=== PATIENT | female | born 1965 | race Caucasian/White ===

== ENCOUNTER 2017-09-28 21:13 | Inpatient (IN) | payer BC, OTHER ==
[~2017-09-28] VITALS: Ht 160 cm; Wt 75.3 kg
[~2017-09-28 21:13] MED LIST: INSU10SU2 SC
[2017-09-28 21:21] VITALS: BP 136/94
--- NOTE | 2017-09-28 21:27 | NUR ---
AMBULATED TO ER BED 1
--- NOTE | 2017-09-28 21:30 | NUR ---
PATIENT IS A 52 Y/O FEMALE WHO PRESENTS TO THE ED C/O ABD PAIN. PT STATES, "MY STOMACH HAS BEEN HURTING SO BADLY." PT REPORTS 10/10 ACHING PAIN ON THE ABD THAT DOES NOT RADIATE. PT DENIES CP, SOB, REPORTS NAUSEA DENIES VOMITING/DIARRHEA. PT AAOX4, RR EVEN/UNLABORED, PT REPOSITIONED FOR COMFORT, BED IN LOWEST POSITION. ER MD DR. SCOTT NOTIFIED. WILL CONTINUE TO MONITOR.
--- NOTE | 2017-09-28 21:35 | NUR ---
Patient being evaluated by physician at bedside.
[2017-09-28] MEDS ORDERED: MORPHINE SULFATE 4 MG/ML SYR IVP ONE (22:00)
[2017-09-28] MEDS ORDERED: NACL 0.9% 1,000 ML IV ONE ×2 (22:00→23:30)
[2017-09-28] MEDS ORDERED: ONDANSETRON 4 MG/2 ML VIAL IVP ONE (22:00)
--- NOTE | 2017-09-28 22:10 | NUR ---
PATIENT TAKEN TO CT VIA WHEELCHAIR.
--- NOTE | 2017-09-28 22:25 | NUR ---
PATIENT RETURN FROM CT.
[2017-09-28 22:29] LABS: APPEARANCE,URINE SL CLOUDY (CLEAR); BILIRUBIN,URINE NEGATIVE (NEGATIVE); BLOOD, URINE NEGATIVE (NEGATIVE); COLOR,URINE YELLOW (YELLOW); LEUKOCYTE ESTERASE ,URINE NEGATIVE (NEGATIVE); NITRITE, URINE NEGATIVE (NEGATIVE); UGLUCOSE NEGATIVE (NEGATIVE)
[2017-09-28 22:42] LABS: BASOPHILS # (AUTO) 0.5 K/uL (0.00-0.22); BASOPHILS % (AUTO) 2.9 % (0.0-2.0); EOSINOPHILS # (AUTO) 0.2 K/uL (0-0.4); HEMATOCRIT 43.2 % (36-48); HEMOGLOBIN 14.1 g/dL (12.0-16.0); LYMPHOCYTES # (AUTO) 2.8 K/uL (2.5-16.5); LYMPHOCYTES % (AUTO) 16.8 % (20.5-51.1); MEAN CORPUSCULAR HEMOGLOBIN 30 pg (27-31); MEAN CORPUSCULAR HGB CONC 33 g/dL (33-37); MEAN CORPUSCULAR VOLUME 92 fL (80-94); MONOCYTES # (AUTO) 1.2 K/uL (0.8-1.0); NEUTROPHILS # (AUTO) 11.9 K/uL (1.8-7.7); NEUTROPHILS % (AUTO) 72.3 % (42.2-75.2); PLATELET COUNT (AUTO) 407 K/uL (140-450); RED BLOOD CELL COUNT(AUTO) 4.69 MIL/uL (4.20-5.40); RED CELL DISTRIBUTION WIDTH 12.9 % (11.6-13.7); WHITE BLOOD COUNT (AUTO) 16.6 K/uL (4.8-10.8)
[2017-09-28 22:44] LABS: ANION GAP 14.4 (8-16); CARBON DIOXIDE 27.9 mmol/L (21-32); CREATININE 0.9 mg/dL (0.6-1.3); POTASSIUM 4.3 mmol/L (3.5-5.1); TOTAL BILIRUBIN 0.4 mg/dL (0.0-1.0)
[2017-09-28 22:44] LABS: RBC,URINE 0-5 (RARE) /HPF (0-5); WBC,URINE 0-5 (RARE) /HPF (0-5)
--- NOTE | 2017-09-28 23:45 | NUR ---
# 14 FR NG tube placed to RIGHT nare. Placement checked by auscultation of instilled air into stomach and aspiration of gastric contents. Tubing taped in place to prevent dislodging. Patient tolerated WELL.
[2017-09-29] VITALS (9 sets, daily range): BP systolic 137–166; BP diastolic 67–86
[2017-09-29] MEDS ORDERED: MORPHINE SULFATE 4 MG/ML SYR IVP ONE (00:20)
[2017-09-29] MEDS ORDERED: ONDANSETRON 4 MG/2 ML VIAL IVP ONE (00:20)
[2017-09-29] MEDS ORDERED: NACL 0.9% 1,000 ML IV SCH ×3 (00:51→17:51)
[2017-09-29] MEDS ORDERED: MORPHINE SULFATE 2 MG/ML SYR IVP PRN ×4 (00:55→20:25)
[2017-09-29] MEDS ORDERED: ONDANSETRON 4 MG/2 ML VIAL IVP PRN ×2 (01:00→17:55)
[2017-09-29] MEDS ORDERED: HYDROcodone/APAP 7.5/325 MG 1 TAB PO PRN (01:00)
[2017-09-29] MEDS ORDERED: ACETAMINOPHEN 325 MG TAB PO PRN ×2 (01:00→20:25)
[2017-09-29] MEDS ORDERED: HUM SUBQ (01:13)
--- NOTE | 2017-09-29 01:25 | NUR ---
Patient will be admitted to care of STORMY. Admited to M/S. Will go to room 106B. Belongings list completed. Report to WAYNE CROOK.
--- NOTE | 2017-09-29 01:30 | NUR ---
PT ARRIVED ON THE UNIT VIA GURNEY FROM ER. PT IN STABLE CONDITION. PT IS ON RA. SKIN IS WARM AND DRY TO TOUCH, COLOR WNL, PT HAS R AC 20G, PATENT AND INTACT, NG TUBE TO R NARE ON INTERMITTENT SUCTION, PATENT AND INTACT. RESPIRATIONS ARE EVEN AND UNLABORED, SKIN IS INTACT. INITIAL ASSESSMENT COMPLETE, PLAN OF CARE DISCUSSED WITH PT AT BEDSIDE, VERBALIZED UNDERSTANDING. ALL SAFETY PRECAUTIONS MET, CALL LIGHT WITHIN REACH WILL CONTINUE TO MONITOR
--- NOTE | 2017-09-29 01:40 | NUR ---
PAGED DR. TAPIA FOR ORDERS
--- NOTE | 2017-09-29 01:50 | NUR ---
DR. TAPIA PAGED BACK WILL CARRY OUT NEW ORDERS
[2017-09-29] MEDS ORDERED: DEXTROSE 50% 50 ML SYR IVP PRN (02:00)
[2017-09-29] MEDS: NACL 0.9% 1,000 ML IV SCH ×3 (02:00→21:06)
[2017-09-29] MEDS ORDERED: MORPHINE SULFATE 2 MG/ML SYR ONE (02:21)
--- NOTE | 2017-09-29 03:30 | NUR ---
PAGED DR. TAPIA FOR ORDERS FOR PAIN MEDICATION
--- NOTE | 2017-09-29 03:35 | NUR ---
DR. TAPIA PAGED BACK, WILL CARRY OUT NEW ORDERS
[2017-09-29] MEDS: ONDANSETRON 4 MG/2 ML VIAL IVP PRN ×2 (03:57→14:31)
[2017-09-29] MEDS: INSULIN LISPRO SLIDING SCALE 100 UNITS/ML VIAL SUBQ PRN ×2 (06:14→12:01)
[2017-09-29] MEDS: BLOOD GLUCOSE MONITORING 1 DEV DEV FS SCH ×5 (06:38→21:59)
[2017-09-29 06:44] LABS: BASOPHILS # (AUTO) 0.3 K/uL (0.00-0.22); BASOPHILS % (AUTO) 1.9 % (0.0-2.0); EOSINOPHILS # (AUTO) 0.1 K/uL (0-0.4); EOSINOPHILS % (AUTO) 0.8 % (0.0-4.0); HEMATOCRIT 40.5 % (36-48); HEMOGLOBIN 13.3 g/dL (12.0-16.0); LYMPHOCYTES # (AUTO) 1.4 K/uL (2.5-16.5); LYMPHOCYTES % (AUTO) 9.3 % (20.5-51.1); MEAN CORPUSCULAR HEMOGLOBIN 30 pg (27-31); MEAN CORPUSCULAR HGB CONC 33 g/dL (33-37); MEAN CORPUSCULAR VOLUME 91 fL (80-94); MONOCYTES # (AUTO) 0.8 K/uL (0.8-1.0); MONOCYTES % (AUTO) 5.3 % (1.7-9.3); NEUTROPHILS # (AUTO) 12.1 K/uL (1.8-7.7); NEUTROPHILS % (AUTO) 82.7 % (42.2-75.2); PLATELET COUNT (AUTO) 398 K/uL (140-450); RED BLOOD CELL COUNT(AUTO) 4.44 MIL/uL (4.20-5.40); RED CELL DISTRIBUTION WIDTH 13.1 % (11.6-13.7); WHITE BLOOD COUNT (AUTO) 14.7 K/uL (4.8-10.8)
[2017-09-29 07:16] LABS: ALBUMIN 3.6 g/dL (3.4-5.0); ANION GAP 14.6 (8-16); CARBON DIOXIDE 24.8 mmol/L (21-32); CREATININE 0.8 mg/dL (0.6-1.3); MAGNESIUM 1.9 mg/dL (1.8-2.4); PHOSPHORUS 2.1 mg/dL (2.5-4.9); POTASSIUM 4.4 mmol/L (3.5-5.1); TOTAL BILIRUBIN 0.7 mg/dL (0.0-1.0)
--- NOTE | 2017-09-29 07:38 | NUR ---
GAVE REPORT AT THE BEDSIDE TO DAY NURSE FOR CONTINUITY OF CARE PT IN STABLE CONDITION.
--- NOTE | 2017-09-29 07:39 | NUR ---
RECEIVED REPORT FROM TECHNICAL SUPPORT MANAGER NURSE. PATIENT IN STABLE CONDITION. PATIENT SITTING IN BED. NO DISTRESS NOTED. ABD PAIN WITHIN TOLERABLE AT THIS TIME. AAOX4, CALM, COOPERATIVE, SKIN COLOR APPROPRIATE TO ETHNICITY, WARM TO TOUCH. ABDOMEN IS SOFT, DISTENDED. DENIES ANY NAUSEA/VOMIT AT THIS TIME. LUNGS CTA ON ALL LOBES. NO OTHER WOUNDS/LESIONS NOTED THROUGHOUT BODY. NGTUBE IN PLACE ON RIGHT NOSTRILE, ON INTERMITTENT SUCTION. DRAINING SEROSANGUINOUS FLUID. IV INTACT, PATENT, AND INFUSING IVF PER ORDERS. REVIEWED PLAN OF CARE WITH PATIENT. PATIENT VERBALIZED UNDERSTANDING. SAFETY MEASURES IN PLACE, CALL LIGHT WITHIN REACH. WILL CONTINUE TO MONITOR.
[2017-09-29] MEDS ORDERED: ENOXAPARIN 30 MG/0.3 ML SYR SUBQ SCH (09:00)
[2017-09-29] MEDS ORDERED: DOCUSATE SODIUM 100 MG GELCAP PO SCH (09:00)
[2017-09-29] MEDS: PANTOPRAZOLE 40 MG INJ VIAL IVP SCH (09:24)
--- NOTE | 2017-09-29 09:33 | NUR ---
PATIENT LYING ON HER LEFT SIDE IN BED. C/O ABDOMINAL PAIN 06/18, MORPHINE MEDICATION IS NOT DUE YET. WILL NOTIFY DR. TAPIA THAT MORPHINE IS NOT WORKING FOR THE PATIENT. RESPIRATIONS EVEN, UNLABORED, INCREASED DUE TO PAIN, ON ROOM AIR. DENIES ANY NAUSEA/VOMITING AT THIS TIME. MEDICATIONS DUE GIVEN. SAFETY MEASURES IN PLACE, CALL LIGHT WITHIN REACH. WILL CONTINUE TO MONITOR.
--- NOTE | 2017-09-29 10:30 | NUR ---
PAGED DR. MARC DUE TO PATIENT COMPLAINTS OF CONTINUED LEFT UPPER ABD PAIN DESPITE CURRENT PAIN MANAGEMENT OF MORPHINE. NEW ORDERS GIVEN VIA TORB TO CHANGE MORPHINE 2GM/ML VIA IVP TO Q3H. ALSO NOTIFIED DR. MARC THAT NO GI CONSULT ORDERS YET. DR. MARC TO SEE PATIENT LATER TODAY. WILL CONTINUE TO MONITOR PATIENT.
[2017-09-29] MEDS: MORPHINE SULFATE 2 MG/ML SYR IVP PRN ×2 (11:13→14:43)
--- NOTE | 2017-09-29 11:15 | NUR ---
ASSISTED PATIENT TO THE BATHROOM, BY TEMPORARILY DISCONNECTING NG TUBE SUCTION. ABLE TO AMBULATE WITH STEADY GAIT TO BATHROOM AND BACK TO BED. PLACED PATIENT BACK ON NGTUBE INTERMITTENT SUCTION. SAFETY MEASURES IN PLACE, CALL LIGHT WITHIN REACH. WILL CONTINUE TO MONITOR.
--- NOTE | 2017-09-29 11:43 | NUR ---
PATIENT LYING ON HER LEFT SIDE IN BED. AT BEDSIDE. ABDOMINAL PAIN WITHIN TOLERABLE AT THIS TIME. NGTUBE SUCTION ON INTERMITTENT. IV SITE INTACT, PATENT, AND INFUSING IVF PER ORDERS. SAFETY MEASURES IN PLACE, CALL LIGHT WITHIN REACH. WILL CONTINUE TO MONITOR.
[2017-09-29] MEDS ORDERED: DEXT 5% /NACL 0.9% 1,000 ML IV SCH (13:10)
--- NOTE | 2017-09-29 13:15 | NUR ---
DR. MARC AT BEDSIDE. REVIEWING PLAN OF CARE WITH PATIENT. WILL CONTINUE TO MONITOR.
--- NOTE | 2017-09-29 14:17 | NUR ---
FAXED INITIAL REVEIW TO [facility] [phone] PHONE DURGA [phone]
--- NOTE | 2017-09-29 14:30 | NUR ---
DR. WELLER AT BEDSIDE FOR CONSULT. PATIENT HAD VOMITING EPISODE X1 JUST NOW. ZOFRAN GIVEN PER ORDERS. PATIENT COMPLAINTS OF 8/10 ABD PAIN. MORPHINE GIVEN PER MD ORDERS. SAFETY MEASURES IN PLACE. CALL LIGHT WITHIN REACH. WILL CONTINUE TO MONITOR.
[2017-09-29] MEDS: PIPER/TAZO 3.375GM/D5W PREMIX 50 ML IV SCH ×2 (15:00→21:14)
--- NOTE | 2017-09-29 16:30 | NUR ---
RECEIVED ORDERS FROM DR. SOLORZANO TO OBTAIN CONSENT FOR SURGERY TO PERFORM EXPLORATORY LAPARATOMY FOR BOWEL OBSTRUCTION, POSSIBLE BOWEL RESECTION, POSSIBLE OSTOMY SURGERY TODAY AT 1700. PROCEDURE EXPLAINED TO PATIENT AND AT BEDSIDE. PATIENT'S PREFERRED LANGUAGE IS SWEDISH, HOWEVER, PREFERS HER TO TRANSLATE FOR HER INSTEAD OF USING THE BLUE PHONE SODDER THAT WAS OFFERED TO JOANNE. PATIENT'S SPEAKS STATELESS AND SWEDISH. ANSWERED ALL OF PATIENT'S/'S QUESTIONS. CONSENT FOR SURGERY SIGNED. SAFETY MEASURES IN PLACE, CALL LIGHT WITHIN REACH. WILL CONTINUE TO MONITOR.
--- NOTE | 2017-09-29 16:50 | NUR ---
PATIENT TAKEN OF UNIT BY OR NURSES VIA GURNEY/BED. PATIENT IN STABLE CONDITION. WILL CONTINUE TO MONITOR WHEN PATIENT COMES BACK TO UNIT.
[2017-09-29] MEDS: BUPIVACAINE-MPF 0.25% 30 ML VIAL INJ ONE ×2 (16:52→20:19)
[2017-09-29] MEDS ORDERED: fentaNYL 0.05 MG/ML VIAL ONE (17:03)
[2017-09-29] MEDS ORDERED: MIDAZOLAM 2 MG/2 ML VIAL ONE (17:03)
[2017-09-29] MEDS ORDERED: MEPERIDINE 50 MG/ML SYR ONE (17:03)
[2017-09-29] MEDS ORDERED: SUCCINYLCHOLINE CHLORIDE 200 MG/10 ML VIAL IVP ONE (17:04)
[2017-09-29] MEDS ORDERED: BUPIVACAINE-MPF/EPI 0.25% 30 ML VIAL INJ ONE ×2 (17:13→17:16)
[2017-09-29] MEDS ORDERED: SUCCINYLCHOLINE CHLORIDE 200 MG/10 ML VIAL IV ONE (17:15)
[2017-09-29] MEDS ORDERED: PROPOFOL 200 MG/20 ML VIAL IV ONE (17:15)
[2017-09-29] MEDS ORDERED: ROCURONIUM 50 MG/5 ML VIAL IV ONE (17:15)
[2017-09-29] MEDS ORDERED: SEVOFLURANE 250 ML BTL INH ONE (17:15)
[2017-09-29 17:21] LABS: APPEARANCE,URINE CLEAR (CLEAR); BILIRUBIN,URINE NEGATIVE (NEGATIVE); BLOOD, URINE TRACE-L (NEGATIVE); COLOR,URINE ORANGE (YELLOW); LEUKOCYTE ESTERASE ,URINE NEGATIVE (NEGATIVE); NITRITE, URINE NEGATIVE (NEGATIVE); UGLUCOSE 2+ (NEGATIVE)
[2017-09-29 17:25] LABS: RBC,URINE 3-10 (FEW) /HPF (0-5); WBC,URINE 0-5 (RARE) /HPF (0-5)
[2017-09-29] MEDS ORDERED: HYDROmorphone 1 MG/ML AMP IVP PRN (17:55)
[2017-09-29] MEDS ORDERED: diphenhydrAMINE 50 MG/ML VIAL IVP PRN (17:55)
[2017-09-29] MEDS ORDERED: BLOOD GLUCOSE MONITORING 1 DEV DEV FS ONE (17:55)
[2017-09-29] MEDS ORDERED: MEPERIDINE 25 MG/ML SYR IVP PRN (17:55)
--- NOTE | 2017-09-29 19:20 | NUR ---
GAVE REPORT TO DOCTOR OF OSTEOPATHY NURSE. PATIENT IN STABLE CONDITION.
[2017-09-29] MEDS ORDERED: MORPHINE SULFATE 4 MG/ML SYR IV PRN (20:25)
[2017-09-29] MEDS ORDERED: HYDROcodone/APAP 5/325 MG 1 TAB TAB PO PRN (20:25)
--- NOTE | 2017-09-29 20:30 | NUR ---
TRANS IN FROM OR THIS 52 YEAR OLD FEMALE PATIENT AFTER A SUCCESSFUL ABDOMINAL SURGERY; ADMITTED IN ICU BED 8; HOOKED TO PERFUMER, SCOPE SHOWS ON SINUS RHYTHM HR 81/MIN NO ARRHYTHMIAS SEEN. PATIENT IS AROUSABLE, OPEN EYES TO CALLS. IVF IN PROGRESS NORMAL SALINE AT 150 ML/HR. ABDOMEN IS SOFT; DRESSING CLEAN AND INTACT AND WITH ABDOMINAL BINDER IN PLACED.
--- NOTE | 2017-09-29 22:25 | NUR ---
PATIENT'S BLADDER IS DISTENDED AND PATIENT UNABLE TO PASS URINE; PAGD DR. SOLORZANO TO REFER PATIENT; ANSWERED IMMEDIATELY WITH NEW ORDERS TO INSERT THOMPSON CATH.; NGT TO HIGH INTERMITTENT SUCTION; CARRIED OUT.
[2017-09-29] MEDS: HYDROmorphone 1 MG/ML AMP IVP PRN (22:37)
[2017-09-30] VITALS (9 sets, daily range): BP systolic 121–165; BP diastolic 55–106
--- NOTE | 2017-09-30 | NUR ---
ENCOURAGE PATIENT TO COUGH AND DEEP BREATH TOLERATED. AND ASSISTED HER TO TURN AND REPOSITION.
[2017-09-30] MEDS: HYDROmorphone 1 MG/ML AMP IVP PRN ×4 (02:11→11:48)
--- NOTE | 2017-09-30 04:00 | NUR ---
STILL WITH ON AND OFF POST OP PAIN; MONITORED CLOSELY.
[2017-09-30] MEDS: NACL 0.9% 1,000 ML IV SCH (05:04)
[2017-09-30] MEDS: PIPER/TAZO 3.375GM/D5W PREMIX 50 ML IV SCH ×3 (05:06→21:09)
--- NOTE | 2017-09-30 07:25 | NUR ---
ENDORSED TO AM SHIFT AMBREEN GAGE FOR CONTINUITY OF CARE
--- NOTE | 2017-09-30 07:30 | NUR ---
RECEIVED REPORT FROM INDUSTRIAL SALES ENGINEER RN, PT DROWSY BUT AROUSABLE, BEDSIDE MONITOR SHOWS SR, ON ROOM AIR, NO S/S OF RESPIRATORY DISTRESS NOTED, PT HAD EXPLORATORY LAPAROTOMY YESTERDAY, SITE INTACT AND PATENT, NGT SUCTION IN PLACE WITH BROWNISH SUCTION NOTED. IV TO RIGHT AC RUNNING NS AT 150 ML/HR, THOMPSON CATH IN PLACE, CLEAR YELLOW URINE NOTED, SCD IN PLACE, WILL CONTINUE TO MONITOR.
[2017-09-30] MEDS: BLOOD GLUCOSE MONITORING 1 DEV DEV FS SCH ×4 (08:00→21:06)
[2017-09-30] MEDS: PANTOPRAZOLE 40 MG INJ VIAL IVP SCH (08:14)
--- NOTE | 2017-09-30 08:17 | NUR ---
PATIENT HAS BEEN SCREENED AND CATEGORIZED HIGH NUTRITION RISK. PATIENT WILL BE SEEN WITHIN 1-2 DAYS OF ADMISSION. 09/30/17-10/01/[address]
[2017-09-30] MEDS: ENOXAPARIN 40 MG/0.4 ML SYR SUBQ SCH (08:26)
[2017-09-30 09:37] LABS: HEMATOCRIT 44.8 % (36-48); HEMOGLOBIN 14.8 g/dL (12.0-16.0); MEAN CORPUSCULAR HEMOGLOBIN 31 pg (27-31); MEAN CORPUSCULAR HGB CONC 33 g/dL (33-37); MEAN CORPUSCULAR VOLUME 93 fL (80-94); PLATELET COUNT (AUTO) 351 K/uL (140-450); RED BLOOD CELL COUNT(AUTO) 4.85 MIL/uL (4.20-5.40); RED CELL DISTRIBUTION WIDTH 13.6 % (11.6-13.7); WHITE BLOOD COUNT (AUTO) 17.5 K/uL (4.8-10.8)
[2017-09-30 09:48] LABS: ALBUMIN 2.9 g/dL (3.4-5.0); ANION GAP 16.5 (8-16); CARBON DIOXIDE 23.4 mmol/L (21-32); POTASSIUM 3.9 mmol/L (3.5-5.1); TOTAL BILIRUBIN 1.6 mg/dL (0.0-1.0)
--- NOTE | 2017-09-30 10:18 | NUR ---
CHANGED 0.9 NS FLUID FROM 150ML/ HR TO 100 MLS/HR PER DR. SOLORZANO
[2017-09-30 10:19] LABS: LYMPHOCYTES % (MANUAL) 8 % (20-46); MONOCYTES % (MANUAL) 4 % (5-12)
[2017-09-30] MEDS ORDERED: NACL 0.9% 1,000 ML IV SCH (10:20)
[2017-09-30] MEDS: INSULIN LISPRO SLIDING SCALE 100 UNITS/ML VIAL SUBQ PRN ×3 (12:10→21:19)
--- NOTE | 2017-09-30 13:06 | NUR ---
AT BEDSIDE TO ASSESS PT.
[2017-09-30] MEDS: DEXT 5% /NACL 0.9% 1,000 ML IV SCH ×2 (14:00→23:00)
--- NOTE | 2017-09-30 14:00 | NUR ---
CHANGED IV FLUID TO D51/2 NS AT 100 MLS/HR PER ORDER.
[2017-09-30] MEDS ORDERED: HYDROmorphone-HP 10 MG in NACL 0.9% 50 ML IV SCH (14:05)
[2017-09-30] MEDS ORDERED: HYDROmorphone 1 MG/ML AMP IVP SCH (14:15)
--- NOTE | 2017-09-30 14:22 | NUR ---
FAXED CONCURRENT REVIEW TO [facility] [phone] PHONE DURGA [phone]
--- NOTE | 2017-09-30 14:40 | NUR ---
APPLIED PT ON DILAUDID 10 MG FIELD UNDERWRITER PUMP IN NS 50 ML .LOADING DOES GIVEN.
--- NOTE | 2017-09-30 15:40 | NUR ---
PAGED DR. MARC, NOTIFIED HER PT STILL FEEL PAIN AFTER GIVING DILAUDID SERVICE LEARNING COORDINATOR PUMP, PER DR. MARC, CHANGE THE FREQUENCY Q30 MINUTES TO Q15 MINUTES,MAX 1.5 MG/HR, WILL CARRY OUT.
--- NOTE | 2017-09-30 15:45 | NUR ---
CALLED PHARMACIST MARY TO RESET LATHE MECHANIC PUMP, PER MARY, THE MAX IS 0.8MG/HR THE FREQUENCY IS Q15 MINUTES.
--- NOTE | 2017-09-30 16:45 | NUR ---
PT'S BLOOD SUGAR 307, HUMANLOG 8 UNITS GIVEN PER ORDER.
--- NOTE | 2017-09-30 17:00 | NUR ---
PT STATED PAIN RELIVED IF SHE DOES NOT MOVE. EXPLAINED TO PT SHE HAS WOUND ON HER ABD THAT'S WHY SHE FEELS PAIN, PT VERBALIZED UNDERSTANDING, PT'S AT BEDSIDE.
--- NOTE | 2017-09-30 19:10 | NUR ---
PT STATED PAIN RELIVED, VITALS STABLE AT THIS TIME. REPORT GIVEN TO SAVE ALL OPERATOR RN.
--- NOTE | 2017-09-30 19:15 | NUR ---
MANAGER RESEARCH AND DEVELOPMENT PUMP TOTAL INFUSION 14 ML.
--- NOTE | 2017-09-30 19:15 | NUR ---
REPORT TAKEN FROM DAY NURSE WITH S/P EXPLORATORY LAPAROTOMY DAY 1 WITH NG TUBE IN SITU AND LOW INTERMITTENT SUCTION DRAIN OUT FOR 30 MLS IN DAY TIME , NO BM YET. DRESSING INTACT, AFEBRILE , ON STOCK RECEIVER DILAUDID WITH PAIN GETTER BETTER PER PT. NPO AT HTIS TIME, ON THOMPSON CATH AT THIS TIME & GRAVITY TO FLOOR. PT'S AWAKE, ALERT, ORIENTED X 4 WIHT INDONESIAN SPEAKING ONLY. PT AND PT'S AT THE BEDSIDE WITH PT. NO C/O OTHERS.
--- NOTE | 2017-09-30 19:58 | NUR ---
DR SOLORZANO AT THE BEDSIDE WITH ORDER AND CARRIED OUT.
--- NOTE | 2017-09-30 20:15 | NUR ---
NG TUBE REMOVED AND PROVIDED ICE CHIP WITH EDUCATE TO PT WITH RESPOND WELL.
--- NOTE | 2017-09-30 20:20 | NUR ---
PT'S FAMILY AT THE BEDSIDE WITH UP TO DATE PT STATUS WITH RESPOND WELL.
--- NOTE | 2017-09-30 22:00 | NUR ---
PT'S ASLEEP. PAIN IS CONTROLLED BY FOREST MANAGEMENT TEACHER ON DILAUDID, PT'S TOLERATING WELL.
[2017-10-01] VITALS (8 sets, daily range): BP systolic 145–162; BP diastolic 71–100
--- NOTE | 2017-10-01 | NUR ---
PT'S ASLEEP. NO C/O OTHERS. PAIN COTROLLED BY BATTER MIXER DILAUDID INFUSION WITH PT'S TOLERATING WELL.
[2017-10-01] MEDS: DEXT 5% /NACL 0.9% 1,000 ML IV SCH ×2 (01:56→20:47)
--- NOTE | 2017-10-01 02:00 | NUR ---
PT'S ASLEEP, NO C/O PAIN AND RESTING WELL
--- NOTE | 2017-10-01 03:35 | NUR ---
PAGED O DR TAPIA, RE VIDEOTAPE RECORDING ENGINEER PUMP ISSUE WITH PASS WORD,PT NEED PAIN MEDICATION, ORDER DILAUDID VIDEOTAPE RECORDING ENGINEER DISCONTINUE, START IVP DILAUDID 1 MG Q 4 HOURS IVP FOR EVERY 4 HOURS FOR MODERATE PAIN, IVP DILAUDID 2 MG IVP Q4 HOURS FOR SEVERE PAIN, WILL BE CARRIED OUT.
--- NOTE | 2017-10-01 03:38 | NUR ---
C/O PAIN IN SURGERY SITE, REPOSITION DONE, PAIN MEDS GIVEN WITH DILAUDID 2 MG IVP , EFFECTED GRADUALLY FEEL BETTER. NO REACTION NOTED. PT GETING ASLEEP.
[2017-10-01] MEDS: HYDROmorphone PFS 2 MG/ML SYR IVP PRN ×5 (03:49→23:17)
[2017-10-01] MEDS: PIPER/TAZO 3.375GM/D5W PREMIX 50 ML IV SCH ×3 (05:17→20:46)
--- NOTE | 2017-10-01 05:45 | NUR ---
TOTAL CARE DONE BED BATH GIVEN . DUE MEDICATION GIVEN MD ORDER, PT'S TOLERATING WELL WITH SLOWLY MOVING .PASS GAS. KEEP HOB 30. LINEN CHANGED, THOMPSON CATH CLEAN AND GRAVITY TO FLOOR.
--- NOTE | 2017-10-01 06:00 | NUR ---
AM INTAKE AND OUTPUT RECORDED. NO BM YET
--- NOTE | 2017-10-01 07:13 | NUR ---
REPORT ENDORSE TO DAY NURSE WITH RESUME CARE.PT'S C/O PAIN AT THIS TIME WITH PRN DOSE WILL BE GIVEN BY DAY NURSE.
[2017-10-01] MEDS: HYDROmorphone 1 MG/ML AMP IVP PRN ×2 (07:24→11:28)
--- NOTE | 2017-10-01 07:34 | NUR ---
RECEIVED REPORT FROM NIGHT NURSE. PT IS AAOX4, YAKUT SPEAKING, FOLLOWS COMMANDS AND ABLE TO MAKE NEEDS KNOWN. C/O ABDOMINAL PAIN AND PRN DILAUDID GIVEN ORDERED. SINUS TACHY ON MONITOR. ON O2 VIA NC AT 2 LPM. BILATERAL LUNGS CLEAR UPON AUSCULTATION. PERIPHERAL IV G20 TO RIGHT AC PATENT AND INTACT, INFUSING ORDERED IV FLUID. ABDOMINAL BINDER IN PLACE, DRESSING TO ABD INCISION DRY AND INTACT. NO DRAINAGE OR BLEEDING NOTED. THOMPSON CATH IN PLACE DRAINING URINE TO GRAVITY DRAINAGE BAG. SCDS IN PLACE FOR VTE PROPHYLAXIS. BED IN LOWEST POSITION AND CALL LIGHT WITHIN REACH. NEEDS WELL ATTENDED. WILL CONTINUE TO MONITOR.
[2017-10-01] MEDS: INSULIN LISPRO SLIDING SCALE 100 UNITS/ML VIAL SUBQ PRN ×4 (07:49→20:45)
[2017-10-01] MEDS: BLOOD GLUCOSE MONITORING 1 DEV DEV FS SCH ×4 (07:50→20:43)
[2017-10-01] MEDS: PANTOPRAZOLE 40 MG INJ VIAL IVP SCH (09:02)
[2017-10-01] MEDS: ENOXAPARIN 40 MG/0.4 ML SYR SUBQ SCH (09:08)
--- NOTE | 2017-10-01 09:20 | NUR ---
MEDICATIONS ADMINISTERED. PT TOLERATED WELL.
[2017-10-01 09:28] LABS: BASOPHILS # (AUTO) 0.2 K/uL (0.00-0.22); BASOPHILS % (AUTO) 1.3 % (0.0-2.0); EOSINOPHILS % (AUTO) 0.1 % (0.0-4.0); HEMATOCRIT 38.9 % (36-48); HEMOGLOBIN 12.6 g/dL (12.0-16.0); LYMPHOCYTES # (AUTO) 1.8 K/uL (2.5-16.5); LYMPHOCYTES % (AUTO) 11.8 % (20.5-51.1); MEAN CORPUSCULAR HEMOGLOBIN 30 pg (27-31); MEAN CORPUSCULAR HGB CONC 32 g/dL (33-37); MEAN CORPUSCULAR VOLUME 92 fL (80-94); MONOCYTES # (AUTO) 1.4 K/uL (0.8-1.0); NEUTROPHILS % (AUTO) 77.8 % (42.2-75.2); PLATELET COUNT (AUTO) 322 K/uL (140-450); RED BLOOD CELL COUNT(AUTO) 4.22 MIL/uL (4.20-5.40); RED CELL DISTRIBUTION WIDTH 13.3 % (11.6-13.7); WHITE BLOOD COUNT (AUTO) 15.4 K/uL (4.8-10.8)
[2017-10-01 10:33] LABS: ALBUMIN 2.5 g/dL (3.4-5.0); ANION GAP 9.5 (8-16); CREATININE 0.8 mg/dL (0.6-1.3); POTASSIUM 3.5 mmol/L (3.5-5.1); TOTAL BILIRUBIN 1.3 mg/dL (0.0-1.0)
--- NOTE | 2017-10-01 11:30 | NUR ---
FAMILY AT BEDSIDE. NO ACUTE DISTRESS NOTED AT THIS TIME. SAFETY MEASURES ENSURED. WILL CONTINUE TO MONITOR.
--- NOTE | 2017-10-01 12:27 | NUR ---
10/01/17 RD INITIAL ASSESSMENT COMPLETED. PLEASE REFER TO NUTRITION PROGRESS NOTES UNDER CARE ACTIVITY FOR ESTIMATED NUTRITIONAL NEEDS. RD RECOMMENDATIONS: 1- RECOMMEND CONTINUE NPO DIET 2- WHEN MEDICALLY CLEARED FOR PO DIET, RECOMMEND CONSISTENT CARB 60G CCHO. 3- EDUCATE PT ON DIET. 4- F/U 3-5 DAYS; MODERATE RISK. WEN WHEAT MBA, RD
--- NOTE | 2017-10-01 12:29 | NUR ---
DR. MARC IN TO SEE AND EXAMINE PT. WILL FOLLOW UP ON ORDERS.
[2017-10-01] MEDS ORDERED: HYDROmorphone 1 MG/ML AMP IVP PRN (12:35)
--- NOTE | 2017-10-01 12:35 | NUR ---
DR. MARC IN AND SEEN PATIENT. STATED OK PATIENT TO TRANSFER TO TELE UNIT.
[2017-10-01] MEDS: ONDANSETRON 4 MG/2 ML VIAL IV PRN ×2 (14:23→19:35)
--- NOTE | 2017-10-01 14:44 | NUR ---
AT BEDSIDE. NO CHANGE OF CONDITION AT THIS TIME. NO DISTRESS NOTED. NEEDS WELL ATTENDED. WILL CONTINUE TO MONITOR.
--- NOTE | 2017-10-01 17:05 | NUR ---
REPORT GIVEN TO CAMI AT TELEMETRY FOR PT'S TRANSFER TO TELEMETRY UNIT.
--- NOTE | 2017-10-01 17:45 | NUR ---
PT TRANSFERRED TO TELEMETRY UNIT. PT TOLERATED THE TRANSFER. PT IN STABLE CONDITION.
--- NOTE | 2017-10-01 17:45 | NUR ---
RECEIVED FROM ICU VIA GURNEY, ACCOMPANIED BY PT. FAMILY MEMBERS. AWAKE, ALERT, AND ORIENTED X4. NO SIGNS AND SYMPTOMS OF ACUTE DISTRESS NOTED. KEEP COMFORTABLE ON BED. CALL LIGHT WITHIN REACH.
--- NOTE | 2017-10-01 19:14 | NUR ---
BEDSIDE REPORT GIVEN TO THANIA GRAMAJO. IVF INFUSING WELL. IN STABLE CONDITION.
--- NOTE | 2017-10-01 19:30 | NUR ---
RECEIVED REPORT FROM DAY SHIFT NURSE. PATIENT RESTING IN BED, STATED PAIN 10/10. THOMPSON IN PLACE, DRAINING URINE BY GRAVITY. INFORMED PATIENT I WOULD CHECK HIS VITAL SIGNS AND GIVE PAIN MEDICATION ORDERED. PATIENT VERBALIZED UNDERSTANDING. CALL LIGHT WITHIN REACH, SAFETY MEASURE ENSURED ,WILL CONTINUE TO MONITOR.
--- NOTE | 2017-10-01 20:50 | NUR ---
DUE MEDICATION GIVEN, PATIENT RESTING IN BED, NO S/S OF DISTRESS NOTED, RESPIRATION EVEN AND UNLABORED, CALL LIGHT WITHIN REACH, SAFETY MEASURE ENSURED, WILL CONTINUE TO MONITOR.
--- NOTE | 2017-10-01 23:23 | NUR ---
ABDOMINAL PAIN RADIATED TO THE BACK 08/18, BP 127/76 HR 108, DILAUDID GIVEN ORDERED. OFFERED ICE PACK. PATIENT IS SITTING ON THE CHAIR. CALL LIGHT WITHIN REACH, SAFETY MEASURE ENSURED, WILL CONTINUE TO MONITOR.
[2017-10-02] VITALS: BP 127/76
--- NOTE | 2017-10-02 01:34 | NUR ---
PATIENT STATED, " ITCHING, ITCHING. " UPON ASSESSMENT, PATIENT DENIES SOB, AND STATED," I THINK IT THE BED MAKES ME ITCHY." PAGED DR. TAPIA, RECEIVED ORDER OF BENADRYL 25MG IVP Q6H PRN FOR ITCHING. ORDER READ BACK, DR. TAPIA CONFIRMED.
[2017-10-02] MEDS ORDERED: diphenhydrAMINE 50 MG/ML VIAL IVP PRN (01:35)
--- NOTE | 2017-10-02 03:17 | NUR ---
BENADRYL 25MG ADMINISTERED, PATIENT TOLERATED WELL. NO S/S OF DISTRESS NOTED, RESPIRATION EVEN AND UNLABORED, CALL LIGHT WITHIN REACH, SAFETY MEASURE ENSURED, WILL CONTINUE TO MONITOR. Addendum: 10/02/17 at 318 by Glo Pinedo RN BENADRYL 25MG ADMINISTERED AT 228
[2017-10-02 03:45] VITALS: BP 157/79
[2017-10-02] MEDS: HYDROmorphone PFS 2 MG/ML SYR IVP PRN ×6 (03:46→23:03)
[2017-10-02] MEDS: PIPER/TAZO 3.375GM/D5W PREMIX 50 ML IV SCH ×3 (04:36→20:40)
--- NOTE | 2017-10-02 05:04 | NUR ---
PATIENT IS SLEEPING, RESPIRATION EVEN AND UNLABORED, CALL LIGHT WITHIN REACH, SAFETY MEASURE ENSURED, WILL CONTINUE TO MONITOR.
[2017-10-02] MEDS: BLOOD GLUCOSE MONITORING 1 DEV DEV FS SCH ×4 (06:41→21:08)
[2017-10-02] MEDS: INSULIN LISPRO SLIDING SCALE 100 UNITS/ML VIAL SUBQ PRN ×4 (06:43→21:14)
--- NOTE | 2017-10-02 07:02 | NUR ---
PAIN 10/10, BP 119/95, HR 96, DILAUDID GIVEN. PATIENT TOLERATED WELL. WILL CONTINUE TO MONITOR.
--- NOTE | 2017-10-02 07:10 | NUR ---
ENDORSED PLAN OF CARE TO DAY RN. PATIENT IS IN STABLE CONDITION. NO S/S OF DISTRESS NOTED.
[2017-10-02 08:11] VITALS: BP 141/69
--- NOTE | 2017-10-02 09:32 | NUR ---
DR SOLORZANO HERE, REQUESTED TO HAVE PATIENTS THOMPSON CATHETER REMOVED AND HAVE HER START TO AMBULATE. WILL FOLLOW THROUGH WITH ORDERS.
--- NOTE | 2017-10-02 09:43 | NUR ---
THOMPSON CATHETER DISCONTINUED, PATIENT TOLERATED WELL. WILL CONTINUE TO MONITOR.
[2017-10-02] MEDS: PANTOPRAZOLE 40 MG INJ VIAL IVP SCH (09:56)
[2017-10-02] MEDS: ENOXAPARIN 40 MG/0.4 ML SYR SUBQ SCH (10:02)
[2017-10-02 10:08] LABS: BASOPHILS # (AUTO) 0.3 K/uL (0.00-0.22); BASOPHILS % (AUTO) 2.3 % (0.0-2.0); EOSINOPHILS # (AUTO) 0.2 K/uL (0-0.4); EOSINOPHILS % (AUTO) 1.4 % (0.0-4.0); HEMATOCRIT 35.8 % (36-48); HEMOGLOBIN 11.8 g/dL (12.0-16.0); LYMPHOCYTES # (AUTO) 2.1 K/uL (2.5-16.5); MEAN CORPUSCULAR HEMOGLOBIN 30 pg (27-31); MEAN CORPUSCULAR HGB CONC 33 g/dL (33-37); MEAN CORPUSCULAR VOLUME 91 fL (80-94); MONOCYTES # (AUTO) 1.2 K/uL (0.8-1.0); MONOCYTES % (AUTO) 10.3 % (1.7-9.3); NEUTROPHILS # (AUTO) 7.9 K/uL (1.8-7.7); PLATELET COUNT (AUTO) 313 K/uL (140-450); RED BLOOD CELL COUNT(AUTO) 3.92 MIL/uL (4.20-5.40); RED CELL DISTRIBUTION WIDTH 13.1 % (11.6-13.7); WHITE BLOOD COUNT (AUTO) 11.7 K/uL (4.8-10.8)
[2017-10-02 10:47] LABS: ALBUMIN 2.4 g/dL (3.4-5.0); ANION GAP 10.2 (8-16); CARBON DIOXIDE 31.1 mmol/L (21-32); CREATININE 0.8 mg/dL (0.6-1.3); POTASSIUM 3.3 mmol/L (3.5-5.1); TOTAL BILIRUBIN 1.7 mg/dL (0.0-1.0)
--- NOTE | 2017-10-02 11:40 | NUR ---
PATIENTS BROTHER IS HERE AND IS HELPING HER AMBULATE DOWN THE HALLWAY. PATIENT TOLERATING WELL. WILL CONTINUE TO MONITOR.
[2017-10-02] MEDS ORDERED: KCL 20 MEQ/WATER INJ PREMIX 100 ML IV ONE (11:45)
[2017-10-02 12:00] VITALS: BP 153/64
[2017-10-02] MEDS: DEXT 5% /NACL 0.9% 1,000 ML IV SCH ×2 (12:26→15:00)
[2017-10-02] MEDS: LIDOCAINE IV SCH ×2 (14:30→14:53)
[2017-10-02] MEDS: POTASSIUM CHLORIDE IV SCH ×2 (14:30→14:53)
[2017-10-02] MEDS: NACL 0.9% IV SCH ×2 (14:30→14:53)
--- NOTE | 2017-10-02 14:53 | NUR ---
SENAIT MONTIEL 20MEQ RATE OF 130.5, CALLED PHARMACY TO VERIFY THAT THE RATE IS OKAY. THEY INFORMED ME THAT SINCE IT IS 20 MEQ IT HAS TO RUN FOR 2 HOURS. WILL CONTINUE TO MONITOR.
[2017-10-02 16:00] VITALS: BP 152/73
--- NOTE | 2017-10-02 19:23 | NUR ---
ENDORSED PATIENT TO AMBREEN BROOKS, FOR CONTINUITY OF CARE. PATIENT IN STABLE CONDITION.
[2017-10-02 20:00] VITALS: BP 145/77
--- NOTE | 2017-10-02 20:00 | NUR ---
RECEIVED ALERT,ORIENTED. AFEBRILE, NOT IN ACUTE DISTRESS. VERBALIZED IMPROVEMENT OF PAIN AT THE INCISION SITE. IV FLUID D5 NS INFUSING AT 50 ML/HR. MIDLINE INCISION SITE WITH DANIAL INTACT AND WITH MINIMAL SEROSANGUINOS DRAINAGE. SAO2=96% ON ROOM AIR. SINUS RHYTHM @ 90'S ON THE MONITOR. VS STABLE, WILL CONTINUE TO MONITOR. NEEDS ATTENDED.
--- NOTE | 2017-10-02 20:40 | NUR ---
DUE IV ANTIBIOTIC ADMINISTERED.
--- NOTE | 2017-10-02 21:08 | NUR ---
[id number]. WILL GIVE INSULIN PER SLIDING SCALE.
--- NOTE | 2017-10-02 21:14 | NUR ---
HUMALOG 2 UNITS SQ GIVEN PER SLIDING SCALE.
--- NOTE | 2017-10-02 22:50 | NUR ---
IV LINE LEAKING. GAUGE 18 IV LINE ESTABLISHED TO THE LEFT FOREARM. COMPLANED OF WORSENING PAIN. WILL GIVE PAIN MEDICATION.
--- NOTE | 2017-10-02 23:03 | NUR ---
DILAUDID 2 MG IVP GIVEN ORDERED.
--- NOTE | 2017-10-02 23:10 | NUR ---
AMBULANCE HERE TO SOCK FOLDER PT. REPORT GIVEN TO CHIVO REIS. Addendum: 10/02/17 at 2327 by Agency Lv CROOK RN WRONG ENTRY.
--- NOTE | 2017-10-02 23:23 | NUR ---
PT.LEFT UNIT VIA ISRA YAN. Addendum: 10/02/17 at 2327 by Agency Lv RN RN WRONG ENTRY.
[2017-10-03] VITALS: BP 133/63
--- NOTE | 2017-10-03 | NUR ---
AWAKE,NOT IN ANY KIND OF DISTRESS. VERBALIZED SIGNIFICANT IMPROVEMENT OF PAIN. MIDLINE ABDOMINAL INCISION CLEANSED WITH NS,COVERED WITH ABDOMINAL PAD AND BINDER REPLACED WITH NEW ONE DUE TO SOILING. VS STABLE, WILL CONTINUE TO MONITOR.
--- NOTE | 2017-10-03 02:30 | NUR ---
COMPLAINED OF WORSENING PAIN. PAIN MEDICATION NOT DUE AT THIS TIME.
[2017-10-03] MEDS: HYDROmorphone PFS 2 MG/ML SYR IVP PRN ×2 (03:03→12:44)
--- NOTE | 2017-10-03 03:03 | NUR ---
DILAUDID 2 MG IVP GIVEN ORDERED.
[2017-10-03 04:00] VITALS: BP 144/73
--- NOTE | 2017-10-03 04:00 | NUR ---
AWAKE,NOT IN ANY KIND OF DISTRESS. VERBALIZED SIGNIFICANT IMPROVEMENT OF PAIN. VS REMAIN STABLE. WILL CONTINUE TO MONITOR.
[2017-10-03] MEDS: PIPER/TAZO 3.375GM/D5W PREMIX 50 ML IV SCH ×3 (04:58→20:59)
[2017-10-03] MEDS: DEXT 5% /NACL 0.9% 1,000 ML IV SCH ×2 (05:52→20:59)
[2017-10-03] MEDS: BLOOD GLUCOSE MONITORING 1 DEV DEV FS SCH ×4 (06:31→21:07)
[2017-10-03] MEDS: INSULIN LISPRO SLIDING SCALE 100 UNITS/ML VIAL SUBQ PRN ×4 (06:39→21:09)
--- NOTE | 2017-10-03 06:39 | NUR ---
[id number]. 4 UNITS HUMALOG SQ GIVEN PER SLIDING SCALE.
--- NOTE | 2017-10-03 07:25 | NUR ---
ENDORSED CARE TO ZULEMA RN.
--- NOTE | 2017-10-03 07:30 | NUR ---
ENDORSEMENT RECEIVED FROM BELLHOP CAPTAIN NURSE. PATIENT IS STABLE AT THIS TIME. RESPIRATION EVEN, SKIN DRY AND WARM TO THE TOUCH. CALL LIGHT WITHIN REACH. WILL CONTINUE TO MONITOR
[2017-10-03 08:00] VITALS: BP 142/86
--- NOTE | 2017-10-03 08:00 | NUR ---
PATIENT AWAKE, ALERT, ORIENTED X 4. PUPILS EQUAL REACTIVE TO LIGHT. RESPIRATION EVEN, LUNGS SOUND CLEAR THROUGHOUT. CARDIAC WITH S1,S2 PRESENT. BOWEL SOUND ACTIVE 4 QUADRANTS. IV 18G LEFT FOREARM INFUSING D5NS @ 50ML/HR, PATENT AND INTACT. PEDAL PULSE EQUAL. PATIENT COMPLAINED OF ABDOMINAL PAIN /. WILL MEDICATE PER ORDER. CALL LIGHT WITHIN REACH. WILL CONTINUE TO MONITOR.
--- NOTE | 2017-10-03 08:15 | NUR ---
PT C/O FEELING SWEATY AND SHAKY, BLOOD SUGAR CHECKED, 215 AT THIS TIME, PT ALSO C/O ABD PAIN, ABD WITH VERTICAL SURGICAL WOUND WELL APPROXIMATED WITH DANIAL, NO DRAINAGE, ABD SOFT, NON DISTENDED, WILL GIVE PRN DILAUDID FOR PAIN.
[2017-10-03] MEDS: HYDROmorphone 1 MG/ML AMP IVP PRN ×4 (08:35→23:17)
[2017-10-03] MEDS: PANTOPRAZOLE 40 MG INJ VIAL IVP SCH (08:49)
[2017-10-03] MEDS: ENOXAPARIN 40 MG/0.4 ML SYR SUBQ SCH (08:50)
--- NOTE | 2017-10-03 10:20 | NUR ---
PATIENT IS AWAKE, ALERT. RESPIRATION EVEN, UNLABOR. FAMILY AT BEDSIDE. PATIENT COMPLAINED OF PAIN ON THE BACK AND ABDOMEN. WILL MEDICATE PER ORDER. CALL LIGHT WITHIN REACH. WILL CONTINUE TO MONITOR
--- NOTE | 2017-10-03 10:30 | NUR ---
NEW IV WAS PLACED ON RIGHT AC 20G. PATIENT TOLERATED WELL
[2017-10-03] MEDS ORDERED: HYDROmorphone 1 MG/ML AMP IVP SCH (11:00)
[2017-10-03] MEDS: ONDANSETRON 4 MG/2 ML VIAL IV PRN ×2 (11:13→23:54)
[2017-10-03 11:29] LABS: HEMATOCRIT 32.7 % (36-48); HEMOGLOBIN 10.6 g/dL (12.0-16.0); MEAN CORPUSCULAR HEMOGLOBIN 30 pg (27-31); MEAN CORPUSCULAR HGB CONC 33 g/dL (33-37); MEAN CORPUSCULAR VOLUME 92 fL (80-94); PLATELET COUNT (AUTO) 342 K/uL (140-450); RED BLOOD CELL COUNT(AUTO) 3.57 MIL/uL (4.20-5.40); RED CELL DISTRIBUTION WIDTH 13.4 % (11.6-13.7); WHITE BLOOD COUNT (AUTO) 10.6 K/uL (4.8-10.8)
[2017-10-03 11:47] LABS: ALBUMIN 2.2 g/dL (3.4-5.0); ANION GAP 11.3 (8-16); CARBON DIOXIDE 27.9 mmol/L (21-32); CREATININE 0.6 mg/dL (0.6-1.3); POTASSIUM 3.2 mmol/L (3.5-5.1); TOTAL BILIRUBIN 1.4 mg/dL (0.0-1.0)
[2017-10-03 12:00] VITALS: BP 150/81
[2017-10-03 12:01] LABS: BASOPHILS % (MANUAL) 1 % (0-2); EOSINOPHILS % (MANUAL) 4 % (0-4); LYMPHOCYTES % (MANUAL) 13 % (20-46); MONOCYTES % (MANUAL) 12 % (5-12)
--- NOTE | 2017-10-03 12:30 | NUR ---
PATIENT IS AWAKE, ALERT. RESPIRATION EVEN, UNLABOR. FAMILY AT BEDSIDE. PATIENT COMPLAINED OF PAIN ON THE ABDOMEN. WILL MEDICATE PER ORDER. CALL LIGHT WITHIN REACH. WILL CONTINUE TO MONITOR
--- NOTE | 2017-10-03 12:35 | NUR ---
PT UP AMBULATING DOWN THE HALLWAY WITH STEADY GAIT WITH , LOYD WELL, WILL CONTINUE TO MONITOR.
--- NOTE | 2017-10-03 13:24 | NUR ---
DR SOLORZANO AT BEDSIDE.
[2017-10-03] MEDS ORDERED: POTASSIUM CHLORIDE 20% 40 MEQ/15 ML UDC PO SCH (14:00)
[2017-10-03] MEDS ORDERED: MORPHINE SULFATE 4 MG/ML SYR IVP PRN (15:10)
[2017-10-03 16:00] VITALS: BP 154/86
--- NOTE | 2017-10-03 16:46 | NUR ---
PATIENT IS AWAKE, ALERT. RESPIRATION EVEN, UNLABOR. PATIENT COMPLAINED OF ABDOMINAL PAIN 10/10. WILL MEDICATE PER ORDER. CALL LIGHT WITHIN REACH. WILL CONTINUE TO MONITOR
--- NOTE | 2017-10-03 18:05 | NUR ---
PT GIVEN DILAUDID 1MG IV AT 1646, BUT ADMINISTRATION FAILED TO SAVE IN COMPUTER, ENTERED ADMINISTRATION IN eMAR AT THIS TIME, BUT ACTUAL DOSE GIVEN WAS AT 1646.
--- NOTE | 2017-10-03 18:48 | NUR ---
PATIENT IS AWAKE, ALERT. FAMILY AT BEDSIDE. RESPIRATION EVEN. PATIENT IS STABLE AT THIS TIME. CALL LIGHT WITHIN REACH. WILL CONTINUE TO MONITOR
--- NOTE | 2017-10-03 19:30 | NUR ---
RECEIVED PT IN STABLE CONDITION FROM AM NURSE. AWAKE ALERT AND ORIENTED X4. WELSH SPEAKING. SITTING ON THE CHAIR AT THIS TIME. NO C/O ANY PAIN AT THIS TIME. WITH FAMILY MEMBERS AT BEDSIDE. ON TELE MONITOR-SR. HAS IVF INFUSING WELL ON THE RT AC #20. HAS MID ABDOMINAL DRESSING DRY AND INTACT. ABDOMEN SLIGHTLY TENDER WITH C/O GAS. ENCOURAGED TO AMBULATE. PLAN OF CARE DISCUSSED AND VERBALIZED UNDERSTANDING. CALL LIGHT PLACED WITHIN EASY REACH. WILL CONTINUE TO MONITOR.
--- NOTE | 2017-10-03 19:32 | NUR ---
ENDORSEMENT GIVEN TO THE RECEIVER DISPATCHER NURSE. PATIENT IS STABLE AT THIS TIME
[2017-10-03 20:00] VITALS: BP 152/75
--- NOTE | 2017-10-03 22:10 | NUR ---
PAGED DR. MARC ,DR LEWIS READING TEACHER .CALLED BACK AND MADE AWARE OF THE PT C/O GAS. WITH ORDERS ALSO FOR MODERATE PAIN .
--- NOTE | 2017-10-03 22:30 | NUR ---
PT C/O THAT BLOOD SUGAR MIGHT BE LOW. SO AMBREEN MARES CHARGE CHECKED THE BS . RESULT 218. PT GIVEN 2 UNITS HUMALOG INSULIN COVERAGE EARLIER FOR BS 189. WILL CONTINUE TO MONITOR.
[2017-10-03] MEDS: SIMETHICONE 80 MG TAB.CHEW PO PRN (22:36)
[2017-10-03] MEDS: HYDROcodone/APAP 5/325 MG 1 TAB TAB PO PRN (23:13)
--- NOTE | 2017-10-03 23:54 | NUR ---
C/O NAUSEA. MEDICATED WITH ZOFRAN ORDERED. WILL CONTINUE TO MONITOR.
[2017-10-04] VITALS (10 sets, daily range): BP systolic 119–152; BP diastolic 57–82
--- NOTE | 2017-10-04 02:00 | NUR ---
MADE ROUNDS . PT IS SLEEPING AT THIS TIME. NO S/S OF ANY DISCOMFORT NOTED.
[2017-10-04] MEDS: HYDROmorphone 1 MG/ML AMP IVP PRN (03:43)
--- NOTE | 2017-10-04 04:13 | NUR ---
MADE ROUNDS. PT IS ASLEEP AFTER THE PAIN MED GIVEN @7817. NO S/S OF ANY DISCOMFORT NOTED.
[2017-10-04] MEDS: BLOOD GLUCOSE MONITORING 1 DEV DEV FS SCH ×3 (06:00→23:40)
[2017-10-04] MEDS: INSULIN LISPRO SLIDING SCALE 100 UNITS/ML VIAL SUBQ PRN ×4 (06:01→23:43)
--- NOTE | 2017-10-04 06:01 | NUR ---
BLOOD SUGAR THIS AM 238. HUMALOG 4 UNITS SUBQ GIVEN COVERAGE.
--- NOTE | 2017-10-04 06:20 | NUR ---
PT HAD SOME APPLE JUICE AFTER THE INSULIN COVERAGE GIVEN EARLIER.
--- NOTE | 2017-10-04 07:15 | NUR ---
ENDORSEMENT RECEIVED FROM THE TUBE COVERER NURSE. PATIENT IS AWAKE, VOMITING. WILL MEDICATE PER ORDER. CALL LIGHT WITHIN REACH. WILL CONTINUE TO MONITOR
--- NOTE | 2017-10-04 07:20 | NUR ---
DR. LEWIS WAS PAGED AND CALLED BACK WITH ORDER TO CONTINUE THE [facility] TO [facility]SE. ENDORSED PT TO AM NURSE IN STABLE CONDITION.
[2017-10-04] MEDS: ONDANSETRON 4 MG/2 ML VIAL IV PRN ×2 (07:41→13:44)
--- NOTE | 2017-10-04 07:42 | NUR ---
LARGE EMESIS, DARK GREEN 1100ML, ZOFRAN GIVEN, WILL PAGE TO NOTIFY DR SOLORZANO PER DR LEWIS. WILL CONTINUE TO MONITOR.
--- NOTE | 2017-10-04 08:00 | NUR ---
PATIENT AWAKE, ALERT. PUPILS EQUAL REACTIVE TO LIGHT. RESPIRATION EVEN, LUNG SOUNDS CLEAR THROUGHOUT. CARDIAC WITH S1,S2 PRESENT. BOWEL SOUND ACTIVE 4 QUADRANTS. IV 20G RIGHT AC WITH D5NS@100ML/HR. PATIENT HAD EMESIS X 1. WAS NOTIFIED. WILL MEDICATE PER ORDER. DENIED PAIN AT THIS TIME. CALL LIGHT WITHIN REACH. WILL CONTINUE TO MONITOR
[2017-10-04] MEDS ORDERED: TPN PER PHARMACY MC PRN (08:05)
--- NOTE | 2017-10-04 08:28 | NUR ---
PT REPORTS HAVING SMALL HARD DARK GREEN STOOL IN THE BATHROOM, PT FLUSHED BEFORE NURSE ABLE TO VISUALIZE. PT REFUSES NG TUBE INSERTION, PT STATES SHE WOULD RATHER HAVE ANOTHER SURGERY THAN HAVE ANOTHER NGT. EXPLAINED BENEFITS OF NGT TO PT AND THEY VERBALIZED FULL UNDERSTANDING, BUT STILL REFUSED NGT. NO VOMITING AT THIS TIME, WILL CONTINUE TO MONITOR.
[2017-10-04 08:49] LABS: HEMATOCRIT 34.4 % (36-48); HEMOGLOBIN 11.3 g/dL (12.0-16.0); MEAN CORPUSCULAR HEMOGLOBIN 30 pg (27-31); MEAN CORPUSCULAR HGB CONC 33 g/dL (33-37); MEAN CORPUSCULAR VOLUME 92 fL (80-94); PLATELET COUNT (AUTO) 387 K/uL (140-450); RED BLOOD CELL COUNT(AUTO) 3.73 MIL/uL (4.20-5.40); RED CELL DISTRIBUTION WIDTH 12.8 % (11.6-13.7); WHITE BLOOD COUNT (AUTO) 10.2 K/uL (4.8-10.8)
[2017-10-04] MEDS: ENOXAPARIN 40 MG/0.4 ML SYR SUBQ SCH (08:55)
[2017-10-04] MEDS: PANTOPRAZOLE 40 MG INJ VIAL IVP SCH (08:55)
[2017-10-04] MEDS ORDERED: NACL 0.9% 500 ML IV SCH (09:00)
[2017-10-04 09:14] LABS: ALBUMIN 2.2 g/dL (3.4-5.0); ANION GAP 10.1 (8-16); CREATININE 0.7 mg/dL (0.6-1.3); POTASSIUM 3.1 mmol/L (3.5-5.1); TOTAL BILIRUBIN 0.9 mg/dL (0.0-1.0)
[2017-10-04 09:45] LABS: BASOPHILS % (MANUAL) 1 % (0-2); EOSINOPHILS % (MANUAL) 2 % (0-4); LYMPHOCYTES % (MANUAL) 11 % (20-46); MONOCYTES % (MANUAL) 9 % (5-12)
--- NOTE | 2017-10-04 10:00 | NUR ---
PATIENT AWAKE, ALERT. DENIED PAIN AT THIS TIME. RESPIRATION EVEN. NO DISTRESS NOTED. FAMILY AT BEDSIDE. CALL LIGHT WITHIN REACH. WILL CONTINUE TO MONITOR
--- NOTE | 2017-10-04 10:30 | NUR ---
PATIENT REFUSES PICC LINE AND NG TUBE. WANTS TO TALK TO DR NEWMAN. WILL NOTIFY DR. SOLORZANO. DENIED NAUSEA/VOMITING AT THIS TIME. ABDOMEN SOFT, NON DISTENDED. PAIN UNDER CONTROL. WILL CONTINUE TO MONITOR
--- NOTE | 2017-10-04 11:30 | NUR ---
PATIENT HAD 3RD BM TODAY, SOFT SMALL SEEN IN TOILET.
--- NOTE | 2017-10-04 12:00 | NUR ---
SCHOOL HEALTH ASSISTANT JET FROM [facility] STATED THAT PATIENT NEEDED TO BE DISCHARGE TO EITHER HOME OR [facility]. PATIENT'S CURRENT CONDITION WAS UPDATED WITH THE SCHOOL HEALTH ASSISTANT. WILL NOTIFY
[2017-10-04] MEDS: POTASSIUM CHL 20MEQ/D5-NS 1,000 ML IV SCH ×3 (12:25→23:27)
[2017-10-04] MEDS: PIPER/TAZO 3.375GM/D5W PREMIX 50 ML IV SCH ×2 (13:03→21:39)
[2017-10-04] MEDS: HYDROcodone/APAP 5/325 MG 1 TAB TAB PO PRN (13:44)
--- NOTE | 2017-10-04 13:54 | NUR ---
PATIENT COMPLAINED OF PAIN 6/10 AND NAUSEA. MEDICATIONS WERE GIVEN PER ORDER. PATIENT VERBALIZED SHE AGREED TO HAVE PICC INSERT AND TPN. WILL OBTAIN CONSENT.
[2017-10-04] MEDS ORDERED: POTASSIUM CHLORIDE 10 MEQ TABER PO SCH (14:30)
--- NOTE | 2017-10-04 14:50 | NUR ---
DR. MARC WAS AT BEDSIDE. PER DR. MARC DISCUSSED WITH THE PATIENT, PATIENT DOES NOT WANT TO HAVE A PICC LINE.
--- NOTE | 2017-10-04 16:01 | NUR ---
NOTIFIED DR. SOLORZANO REGARDING PATIENT'S REFUSAL OF NG TUBE, PICC LINE AND TPN
[2017-10-04] MEDS ORDERED: BLOOD GLUCOSE MONITORING 1 DEV DEV MC SCH (18:00)
[2017-10-04] MEDS ORDERED: DILTIAZEM 25 MG/5 ML VIAL IVP SCH (18:20)
--- NOTE | 2017-10-04 18:28 | NUR ---
PATIENT VOMITED LARGE AMOUNT 800 ML. PATIENT BECAME ATRIAL FIB PER MONITOR. VS WAS TAKEN. 119/78, 148, 96% RA, 97.2. DR. MARC WAS MADE AWARE. WILL MEDICATE PER ORDER Addendum: 10/04/17 at 1948 by Angelique Horton RN PT IN RAPID A FIB, HR 180-190 WHILE AMBULATION, PT INSTRUCTED TO RETURN TO BED IMMEDIATELY, VITALS ABOVE, PT DENIES CHEST PAIN OR SOB, DR MARC CALLED IMMEDIATELY, ORDERS FOR CARDIZEM, EKG, CXR, CARDIAC ENZYMES, REDUCED IVF RATE RECEIVED,
--- NOTE | 2017-10-04 18:35 | NUR ---
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
--- NOTE | 2017-10-04 18:45 | NUR ---
HR RETURNED TO 89, BP 131/72, RESP EVEN UNLABORED, SKIN WARM DRY COLOR WNL, PT DENIES CHEST PAIN OR SOB, RESTING COMFORTABLY IN NAD, WILL CONTINUE TO MONITOR
--- NOTE | 2017-10-04 19:30 | NUR ---
PT RESTING QUIELTY IN NAD, HR 89, SINUS RHYTHM ON MONITOR, NO FURTHER VOMITING, REPORT GIVEN TO ONCOLOGY SOCIAL WORKER NURSE.
--- NOTE | 2017-10-04 19:31 | NUR ---
RECEIVED PT IN STABLE CONDITION FROM AM NURSE. AWAKE,ALERT AND ORIENTED X4. AMHARIC SPEAKING. WITH AT BEDSIDE. WITH FAMILY MEMBER AT BEDSIDE. NO C/O OF ANY DISCOMFORT NOR PAIN NOTED AT THIS TIME. NO VOMITING ALSO AT THIS TIME. HAS IVF INFUSING WELL ON THE WRIST #20 .CLEAR AND PATENT. HAS MIDLINE ABDOMINAL DRESSING DRY AND INTACT WITH BINDER ON. PLAN OF CARE DISCUSSED AND PT/FAMILY VERBALIZED UNDERSTANDING. STILL TRY TO CONVINCE PT ABOUT THE NGT. WILL WAIT FOR DECISION. BED ON LOW POSITION. CALL LIGHT PLACED WITHIN EASY REACH. WILL CONTINUE TO MONITOR.
[2017-10-04] MEDS ORDERED: MULTIVITAMIN-12 10 ML in DEXTROSE 50% 480 ML, AMINO ACIDS 8.5% 480 ML IV SCH ×3 (20:00)
--- NOTE | 2017-10-04 20:00 | NUR ---
JUST LEFT AND SAID PT STILL REFUSING THE NGT . PT IS RESTING IN BED AT THIS TIME.
[2017-10-04] MEDS ORDERED: PIPERACILLIN/TAZOBACTAM 3.375 GM VIAL IV ONE (21:29)
--- NOTE | 2017-10-04 22:46 | NUR ---
PAGED DR. MARC REGARDING ZOSYN IVPB ORDER AND TPN . DR. IRBY REHAB THERAPY MANAGER. WILL WAIT FOR CALL BACK.
--- NOTE | 2017-10-04 22:48 | NUR ---
PAGED DR. IRBY AGAIN REGARDING TPN, NO PICC LINE. CALLED BACK AND HE SAID TO HOLD THE TPN. CAN'T USE THE REGULAR PERIPHERAL IV ACCESS. BUT CAN CONTINUE THE ZOSYN IV AND CHANGE THE BS CHECK TO AC AND HS.
[2017-10-05] MEDS: ONDANSETRON 4 MG/2 ML VIAL IV PRN (03:16)
--- NOTE | 2017-10-05 03:16 | NUR ---
PT VOMITED DARK GREENISH LIQUIDS @ 750 ML . MEDICATED WITH ZOFRAN IVP ORDERED.
[2017-10-05 03:25] VITALS: BP 144/74
--- NOTE | 2017-10-05 03:30 | NUR ---
PT REFUSED TO HAVE THE SCD MACHINE ON ON THE LOWER LEGS AT THIS TIME.
[2017-10-05] MEDS: HYDROmorphone 1 MG/ML AMP IVP PRN (03:51)
[2017-10-05] MEDS ORDERED: PIPERACILLIN/TAZOBACTAM 3.375 GM VIAL IV ONE (04:56)
--- NOTE | 2017-10-05 05:00 | NUR ---
PT IS AWAKE, RESTING IN BED. NO MORE C/O PAIN AND . NAUSEA AND VOMITING. WILL CONTINUE TO MONITOR.
[2017-10-05] MEDS: PIPER/TAZO 3.375GM/D5W PREMIX 50 ML IV SCH ×3 (05:06→20:57)
[2017-10-05] MEDS: BLOOD GLUCOSE MONITORING 1 DEV DEV FS SCH ×4 (05:51→20:57)
[2017-10-05] MEDS: INSULIN LISPRO SLIDING SCALE 100 UNITS/ML VIAL SUBQ PRN ×4 (05:56→21:01)
--- NOTE | 2017-10-05 06:00 | NUR ---
BLOOD SUGAR THIS AM 318. INSULIN COVERAGE GIVEN SUBQ. WITH CONTINUOUS IVF INFUSING .
[2017-10-05 06:48] LABS: BASOPHILS # (AUTO) 0.2 K/uL (0.00-0.22); BASOPHILS % (AUTO) 1.6 % (0.0-2.0); EOSINOPHILS # (AUTO) 0.1 K/uL (0-0.4); EOSINOPHILS % (AUTO) 0.8 % (0.0-4.0); HEMATOCRIT 31.8 % (36-48); HEMOGLOBIN 10.3 g/dL (12.0-16.0); LYMPHOCYTES # (AUTO) 1.6 K/uL (2.5-16.5); LYMPHOCYTES % (AUTO) 12.7 % (20.5-51.1); MEAN CORPUSCULAR HEMOGLOBIN 30 pg (27-31); MEAN CORPUSCULAR HGB CONC 32 g/dL (33-37); MEAN CORPUSCULAR VOLUME 92 fL (80-94); MONOCYTES # (AUTO) 1.2 K/uL (0.8-1.0); MONOCYTES % (AUTO) 9.6 % (1.7-9.3); NEUTROPHILS # (AUTO) 9.5 K/uL (1.8-7.7); NEUTROPHILS % (AUTO) 75.3 % (42.2-75.2); PLATELET COUNT (AUTO) 379 K/uL (140-450); RED BLOOD CELL COUNT(AUTO) 3.46 MIL/uL (4.20-5.40); RED CELL DISTRIBUTION WIDTH 13.2 % (11.6-13.7)
[2017-10-05 07:26] LABS: ANION GAP 12.1 (8-16); CARBON DIOXIDE 26.2 mmol/L (21-32); CREATININE 0.7 mg/dL (0.6-1.3); POTASSIUM 3.3 mmol/L (3.5-5.1)
--- NOTE | 2017-10-05 07:35 | NUR ---
ENDORSED PT IN STABLE CONDITION TO AM NURSE.
[2017-10-05 07:39] LABS: WHITE BLOOD COUNT (AUTO) 12.6 K/uL (4.8-10.8)
[2017-10-05 08:00] VITALS: BP 136/57
--- NOTE | 2017-10-05 08:12 | NUR ---
[id number] RECEIVED REPORT FROM AMBREEN MCELROY AT BEDSIDE. INITIAL ASSESSMENT COMPLETED. PT AAOX4. PT STABLE, PT HAS IV ON RIGHT WRIST G 20 INFUSING FLUIDS WELL. ORIENTED PT TO ROOM AND SURROUNDINGS AND USE OF CALL LIGHT. EXPLAINED PLAN OF CARE TO PT AND SHE VERBALIZED UNDERSTANDING. CALL LIGHT WITHIN REACH.
[2017-10-05] MEDS: PANTOPRAZOLE 40 MG INJ VIAL IVP SCH (08:44)
[2017-10-05] MEDS: ENOXAPARIN 40 MG/0.4 ML SYR SUBQ SCH (08:46)
--- NOTE | 2017-10-05 08:50 | NUR ---
PT TOLERATED MORNING MEDS WELL. AT BEDSIDE, WILL CONTINUE TO MONITOR PT.
[2017-10-05] MEDS: POTASSIUM CHL 20MEQ/D5-NS 1,000 ML IV SCH ×2 (10:37→20:37)
[2017-10-05 12:00] VITALS: BP 128/72
[2017-10-05] MEDS: HYDROmorphone PFS 2 MG/ML SYR IVP PRN ×2 (12:31→19:21)
--- NOTE | 2017-10-05 12:33 | NUR ---
PT MEDICATED FOR PAIN. VS STABLE, WILL CONTINUE TO MONITOR PT.
[2017-10-05] MEDS ORDERED: POTASSIUM CHLORIDE 10 MEQ TABER PO SCH (14:27)
--- NOTE | 2017-10-05 14:42 | NUR ---
DEE NOTE CONCURRENT REVIEW FAXED TO [facility] / FAX# [phone] Addendum: 10/05/17 at 1621 by Rajat Shepard RN CAIN: THAO #[phone]
[2017-10-05 14:47] LABS: MAGNESIUM 1.9 mg/dL (1.8-2.4); PHOSPHORUS 3.1 mg/dL (2.5-4.9)
--- NOTE | 2017-10-05 14:58 | NUR ---
POTASSIUM PO GIVEN ORDERED BY DR. MARC.
--- NOTE | 2017-10-05 14:59 | NUR ---
PT HAD MEDIUM SIZED BROWN BM.
--- NOTE | 2017-10-05 15:16 | NUR ---
ENDORSED PT IN STABLE CONDITION TO AMBREEN GREENE.
--- NOTE | 2017-10-05 15:20 | NUR ---
RECEIVED PT REPORT AT BEDSIDE FROM SPENSER CROOK.
[2017-10-05 16:00] VITALS: BP 142/65
--- NOTE | 2017-10-05 16:30 | NUR ---
PT IS AAOX4 AND SHOWS NO S/S OF ACUTE DISTRESS ON RA. PT STATES IV IS PAINFUL. IV DISCONTINUED WITH CANNULA INTACT. WILL ATTEMPT NEW IV.
--- NOTE | 2017-10-05 18:30 | NUR ---
NEW IV ACCESS ON L FA 22G.
--- NOTE | 2017-10-05 19:25 | NUR ---
PT REPORT GIVEN AT BEDSIDE TO NIGHT NURSE PT ENDORSED IN STABLE CONDITION.
--- NOTE | 2017-10-05 19:26 | NUR ---
RECD. RESTING IN BED, AWAKE, A/OX4. RESPIRATION EVEN AND UNLABORED. IV OF D5NS +20 MEQ KCL INFUSING AT 100 ML/HR, LEFT FOREARM G22. AMBULATING TO THE BR WITH ASSISTANCE. INCISION IN THE ABDOMEN COVERED WITH DRESSING, WITH ABDOMINAL BINDER. DRY AND INTACT. ON BILATERAL LEG SEQUENTIALS. ENCOURAGED PATIENT TO TURN TO SIDES AND DO OCCASIONAL DEEP BREATHING. PAIN IN THE ABDOMEN 04/18, WAS MEDICATED BY AM NURSE AT 1921. PLAN OF CARE FOR THE SHIFT DISCUSSED. VERBALIZED UNDERSTANDING.
--- NOTE | 2017-10-05 19:30 | NUR ---
Patient's Plan of Care was discussed and reviewed with PROFESSIONAL NURSE: RAHAT VYAS
[2017-10-05 20:00] VITALS: BP 136/73
[2017-10-05] MEDS: SIMETHICONE 80 MG TAB.CHEW PO PRN (20:50)
--- NOTE | 2017-10-05 20:50 | NUR ---
[place], CLIENT SERVER PROGRAMMER CALLED, PATIENT HAS A BED AVAILABLE FOR TRANSFER TONIGHT AT [facility], ROOM 268 BED 1. WHEN PATIENT HEARD IT, SHE REFUSED TO BE TRANSFERRED, WANTS ANOTHER HOSPITAL, STATED IT IS A BAD HOSPITAL. INFORMED CLIENT SERVER PROGRAMMER, STATED THERE IS NO OTHER HOSPITAL WITH AVAILABLE BED, INSURANCE WILL NOT PAY FOR [facility]. EXPLAINED TO PATIENT AND AGREED TO BE TRANSFERRED, WILL CALL AGAIN FOR AMBULANCE NUMBER TO BE CALLED WHEN PATIENT IS READY TO BE TRANSFERRED.
[2017-10-05] MEDS ORDERED: INSULIN NPH HUM/REG INSULIN HM 100 UNIT/ML 10 ML VIAL SUBQ SCH (21:00)
--- NOTE | 2017-10-05 21:20 | NUR ---
ATE 100 % OF JELLO AND DRINK JUICE FOR SNACK.
--- NOTE | 2017-10-05 21:30 | NUR ---
DISCHARGE INSTRUCTIONS GIVEN TO PATIENT, VERBALIZED UNDERSTANDING.
--- NOTE | 2017-10-05 22:30 | NUR ---
RESTING IN BED, PATIENT AT THE BEDSIDE.
--- NOTE | 2017-10-05 22:52 | NUR ---
REPORT GIVEN [place] AMBRE[place] [facility]
[2017-10-05 23:11] VITALS: BP 134/73
--- NOTE | 2017-10-06 | NUR ---
REPORT GIVEN TO [facility] PERSONNEL.
--- NOTE | 2017-10-06 00:20 | NUR ---
TAKEN TO HOSPITAL LOBBY PARKING IN STABLE CONDITION VIA GURNEY ACCOMPANIED BY AND [facility] PERSONNEL FOR TRANSFER TO [facility].
== END 2017-10-06 00:20 | disposition short-term general hospital (02) | DRG 330 ==
LOC: MED 21:13 → MTU 09-29 00:57 → MIC 09-29 20:30 → MTU 10-01 17:45
PROVIDERS: ADMIT Hospitalist; ATTEND Hospitalist
PROC: 0D9670Z Drainage of Stomach with Drainage Device, Via Natural or Artificial Opening (ICD-10-PCS; 2017-09-30)
PROC: 0DNU0ZZ Release Omentum, Open Approach (ICD-10-PCS; principal; 2017-10-02)
PROC: 0DQ80ZZ Repair Small Intestine, Open Approach (ICD-10-PCS; 2017-10-02)
PROC: 0DN80ZZ Release Small Intestine, Open Approach (ICD-10-PCS; 2017-10-02)
DX: K56.50 Intestinal adhesions [bands], unspecified as to partial versus complete obstruction (principal); S36.438A Laceration of other part of small intestine, initial encounter; I48.0 Paroxysmal atrial fibrillation; D72.825 Bandemia; E11.9 Type 2 diabetes mellitus without complications; K63.89 Other specified diseases of intestine; K56.7 Ileus, unspecified; Z79.4 Long term (current) use of insulin; Z90.81 Acquired absence of spleen; Y93.89 Activity, other specified; Y92.238 Other place in hospital as the place of occurrence of the external cause; Y99.8 Other external cause status
CPT/HCPCS: 36415; 43753; 71010; 74000; 74020; 80048; 80053; 81001; 82550; 82553; 82948; 83690; 83735; 84100; 84484; 85025; 86886; 86900; 86901; 87040; 87081; 87086; 93005; 96361; 96374; 96376; 99285; A9153; C9113; J0330; J1170; J1200; J1650; J1815; J2001; J2175; J2250; J2270; J2405; J2543; J2704; J3010; J3480; J3490; J7030; J7042; J7060; Q0092